=== PATIENT | female | born 1960 | race Caucasian/White ===

== ENCOUNTER 2018-03-23 04:56 | Observation (INO) | payer OTHER ==
[2018-03-23] MEDS ORDERED: NITROGLYCERIN SL TABS 0.4 MG TAB SUBLINGUAL PRN (04:59)
--- NOTE | 2018-03-23 05:01 | ED ---
Chest Pain HPI - General Stated Complaint: Chest Pain Time Seen by Provider: 03/23/18 04:59 Source: patient, RN/MD Mode of arrival: EMS Limitations: no limitations - History of Present Illness Initial Comments: Patient's 57-year-old woman transferred from [facility] to have cardiology consultation. The patient reports she had gone there after she had been having substernal chest pressure and some diaphoresis. The patient had recently been seen by the machine edge bander and had had a stress test prior to the onset of symptoms. Patient had workup there that was reportedly negative and her case been discussed with the machine edge bander on-call who requested that she be transferred here to have further studies. Patient states that her symptoms have improved. MD Complaint: chest pain -: hour(s) Onset: during rest Pain Location: substernal Pain Radiation: none Severity: mild Quality: heaviness Consistency: constant Improves With: nothing Worsens With: nothing Anginal Symptoms: diaphoresis Treatments Prior to Arrival: aspirin, oxygen - Related Data Home Medications Medication Instructions Recorded Confirmed Aspirin EC [Ecotrin] 325 mg PO DAILY 03/23/18 03/23/18 Insulin Glargine [Lantus] 85 unit SQ HS 03/23/18 03/23/18 Insulin Regular, Human [NovoLIN R] 5 - 20 unit SQ AC-TID PRN 03/23/18 03/23/18 Isosorbide Mononitrate ER [Imdur] 30 mg PO DAILY 03/23/18 03/23/18 Lisinopril [Zestril] 20 mg PO DAILY 03/23/18 03/23/18 Meloxicam [Mobic] 15 mg PO DAILY 03/23/18 03/23/18 Pilocarpine HCl 5 mg PO TID 03/23/18 03/23/18 Simvastatin [Zocor] 40 mg PO HS 03/23/18 03/23/18 cloNIDine HCL [Catapres] 0.2 mg PO BID 03/23/18 03/23/18 metFORMIN HCL [Glucophage] 500 mg PO BID 03/23/18 03/23/18 Allergies Allergy/AdvReac Type Severity Reaction Status Date / Time latex Allergy Unknown Verified 03/23/18 09:36 Penicillins Allergy Unknown Verified 03/23/18 09:36 Sulfa (Sulfonamide Allergy Unknown Verified 03/23/18 09:36 Antibiotics) Review of Systems ROS Statement: Those systems with pertinent positive or pertinent negative responses have been documented in the HPI. ROS Other: All systems not noted in ROS Statement are negative. Constitutional: Denies: fever, chills, weakness Respiratory: Denies: cough, dyspnea Cardiovascular: Reports: chest pain. Denies: palpitations, orthopnea, edema, syncope Gastrointestinal: Denies: abdominal pain, nausea, vomiting Genitourinary: Denies: dysuria, hematuria Musculoskeletal: Denies: back pain Skin: Denies: rash Neurological: Denies: headache, weakness, numbness EKG Findings - EKG Results: EKG: interpreted by GORGE KAY, sinus rhythm (Rate is proximal 69 bpm), normal axis, normal QRS, normal ST/T Past Medical History - Past Family History Father Family Medical History: AFIB, COPD, Coronary Artery Disease (CAD), Diabetes Mellitus Additional Family Medical History / Comment(s): Father at the age of 75 yrs. Mother Family Medical History: Cancer, COPD, Diabetes Mellitus, Myocardial Infarction ( [place]) Additional Family Medical History / Comment(s): Mother had ovarian cancer. She at the age of 59yrs from a massive [place] General Exam General appearance: alert, in no apparent distress Head exam: Present: atraumatic, normocephalic Eye exam: Present: normal appearance Respiratory exam: Present: normal lung sounds bilaterally. Absent: respiratory distress, wheezes, rales, rhonchi, stridor Cardiovascular Exam: Present: regular rate, normal rhythm, normal heart sounds. Absent: systolic murmur, diastolic murmur, rubs, gallop GI/Abdominal exam: Present: soft. Absent: distended, tenderness, guarding, rebound Extremities exam: Present: normal inspection, normal capillary refill. Absent: pedal edema, calf tenderness Back exam: Present: normal inspection. Absent: CVA tenderness (R), CVA tenderness (L) Neurological exam: Present: alert Skin exam: Present: warm, dry, intact, normal color. Absent: rash Course Vital Signs 03/23/18 03/23/18 05:04 05:55 Temperature 99.1 F 99.0 F Pulse Rate 86 72 Respiratory 18 18 Rate Blood Pressure 189/86 162/84 O2 Sat by Pulse 95 98 Oximetry Chest Pain MDM - MDM This patient's 57-year-old woman transferred here from [facility]. Transfer materials reviewed and admission orders written. Disposition Clinical Impression: Chest pain Disposition: ADMITTED IP TO THIS HOSP Condition: Fair
[2018-03-23 10:05] VITALS: RESP 16
--- NOTE | 2018-03-23 10:20 | P.HPIM ---
History of Present Illness H&P Date: 03/23/18 Chief Complaint: Chest pain, transferred here to obtain cardiology consultation Patient is obese 57-year-old female with a past medical history of type 2 diabetes, essential hypertension, dyslipidemia, angina, GERD that presents to the ER after being transferred here from [facility]. The patient is followed in cardiology clinic by Dr. Betancourt. She reports yesterday that she had a dobutamine stress test and echocardiogram performed in clinic, apparently post procedure the patient began having intractable nausea and severe chest pressure and later presented to [facility] and was subsequently transferred here. The patient reports associated shortness of breath, diaphoresis, feeling lightheaded and was close to passing out. She reports sensation of feeling like her heart was racing she also reports her blood pressure was severely elevated at 180s systolically. The patient reports that she's been following with Dr. Betancourt for several years and reports that she had a cath done in 2009 that was reportedly normal. Review of EKG done that her district indicates no acute signs of ischemia and troponins are apparently negative at that time. The patient currently denies any chest pressure Review of Systems Pertinent positives and negatives as discussed in HPI, complete review of systems was performed and all other systems are negative Past Medical History Past Medical History: Cancer, Chest Pain / Angina, Diabetes Mellitus, Eye Disorder, Fibromyalgia, GERD/Reflux, Hyperlipidemia, Hypertension, Pneumonia, Sleep Apnea/CPAP/BIPAP Additional Past Medical History / Comment(s): 2004 R kidney cancer with nephrectomy, 2009 L kidney cancer with partial nephrectomy, 2007 bilateral breast cancer with bilateral mastectomies, IDDM type II, neuropathy bilateral hands, hiatal hernia, past stomach ulcers, AWAIS without device, chronic back pain /radiates into R leg at times, arthritis back, hips knees, foot cramping with walking long distances, Sjogren's syndrome, UTIs, urinary leakage-wears depends, abnormal gait-"stumble", 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 History of Any Multi-Drug Resistant Organisms: None Reported Past Surgical History: Breast Surgery, Section, Heart Catheterization, Tonsillectomy, Tubal Ligation Additional Past Surgical History / Comment(s): 2004 R nephrectomy, 2009 partial L nephrectomy, 2009 bilateral mastectomies/breast implants, 2 past cardiac caths with last time being 2010 and was clear, colonoscopy, L corneal implant Additional Past Anesthesia/Blood Transfusion Reaction / Comment(s): Very slow to awaken. Smoking Status: Current every day smoker - Past Family History Father Family Medical History: AFIB, COPD, Coronary Artery Disease (CAD), Diabetes Mellitus Additional Family Medical History / Comment(s): Father at the age of 75 yrs. Mother Family Medical History: Cancer, COPD, Diabetes Mellitus, Myocardial Infarction ( [place]) Additional Family Medical History / Comment(s): Mother had ovarian cancer. She at the age of 59yrs from a massive [place] Medications and Allergies Home Medications Medication Instructions Recorded Confirmed Type Aspirin EC [Ecotrin] 325 mg PO DAILY 03/23/18 03/23/18 History Insulin Glargine [Lantus] 85 unit SQ HS 03/23/18 03/23/18 History Insulin Regular, Human [NovoLIN R] 5 - 20 unit SQ AC-TID PRN 03/23/18 03/23/18 History Isosorbide Mononitrate ER [Imdur] 30 mg PO DAILY 03/23/18 03/23/18 History Lisinopril [Zestril] 20 mg PO DAILY 03/23/18 03/23/18 History Meloxicam [Mobic] 15 mg PO DAILY 03/23/18 03/23/18 History Pilocarpine HCl 5 mg PO TID 03/23/18 03/23/18 History Simvastatin [Zocor] 40 mg PO HS 03/23/18 03/23/18 History cloNIDine HCL [Catapres] 0.2 mg PO BID 03/23/18 03/23/18 History metFORMIN HCL [Glucophage] 500 mg PO BID 03/23/18 03/23/18 History Allergies Allergy/AdvReac Type Severity Reaction Status Date / Time latex Allergy Unknown Verified 03/23/18 09:36 Penicillins Allergy Unknown Verified 03/23/18 09:36 Sulfa (Sulfonamide Allergy Unknown Verified 03/23/18 09:36 Antibiotics) Physical Exam Vitals: Vital Signs Temp Pulse Resp BP BP Pulse Ox 03/23/18 08:00 97.9 F 18 173/97 95 03/23/18 05:55 99.0 F 72 18 162/84 98 03/23/18 05:04 99.1 F 86 18 189/86 95 Intake and Output 03/22/18 03/23/18 03/23/18 22:59 06:59 14:59 Other: Voiding Method Toilet Weight 92.533 kg Constitutional: No acute distress, conversant, pleasant Eyes: Anicteric sclerae, moist conjunctiva, no lid-lag, PERRLA ENMT: NC/AT,Oropharynx clear, no erythema, exudates Neck:Supple, FROM, no masses, or JVD, No carotid bruits; No thyromegaly Lungs: Clear to auscultation, Clear to percussion, Normal respiratory effort, no accessory muscle use Cardiovascular: Heart regular in rate and rhythm, No murmurs, occasional S3 heard, or rubs no peripheral edema Abdominal: Soft Nontender, nom distended, no guarding, no rebound or rigidity, Normoactive bowel sounds No hepatomegaly, No splenomegaly, No palpable mass No abdominal wall hernia noted Skin: Normal temperature, tone, texture, turgor, No induration No subcutaneous nodules, No rash, lesions, No ulcers Extremities:No digital cyanosis No clubbing, Pedal pulses intact and symmetrical Radial pulses intact and symmetrical Normal gait and station, No calf tenderness Psychiatric: Alert and oriented to person, place and time, Appropriate affect Intact judgement Neuro: Muscles Strength 5/5 in all 4 extremities, Sensation to light touch grossly present throughout, Cranial nerves II-XII grossly intact. No focal sensory deficits Thrombosis Risk Factor Assmnt - Choose All That Apply Any of the Below Risk Factors Present?: Yes Each Factor Represents 1 point: Age 41-60 years, Obesity (BMI >25) Other Risk Factors: Yes Each Risk Factor Represents 2 Points: Malignancy Other congenital or acquired thrombophilia - If yes, enter type in comment: No Thrombosis Risk Factor Assessment Total Risk Factor Score: 4 Thrombosis Risk Factor Assessment Level: Moderate Risk Assessment and Plan (1) Chest pain Status: Acute Code(s): R07.9 - CHEST PAIN, UNSPECIFIED SNOMED Code(s): 35782218 (2) Type 2 diabetes mellitus Status: Acute Code(s): E11.9 - TYPE 2 DIABETES MELLITUS WITHOUT COMPLICATIONS SNOMED Code(s): 25376652 (3) Hyperlipidemia Status: Acute Code(s): E78.5 - HYPERLIPIDEMIA, UNSPECIFIED SNOMED Code(s): 62551342 (4) GERD (gastroesophageal reflux disease) Status: Acute Code(s): K21.9 - GASTRO-ESOPHAGEAL REFLUX DISEASE WITHOUT ESOPHAGITIS SNOMED Code(s): 469398502 Plan: The patient's recent observation for chest pain we'll need to rule out ACS, initial workup this negative for any signs of acute ischemia we'll continue to trend troponins. Patient recently had echocardiogram and stress test performed in clinic, we'll obtain a region results continue chest pain orders with aspirin. Statin therapy, nitroglycerin. Cardiology is consulted. We'll continue monitor her vitals and continue follow her clinical course Update:patient cleared for discharge per cardiology as dobutamine stress test was negative as well as her subsequent cardiac enzymes. And stress echocardiogram results are pending. It was thought that the patient's presenting symptoms were secondary to infusion of the dobutamine, she subsequently discharged home in stable condition with follow-up with Dr. Betancourt.
[2018-03-23] MEDS ORDERED: LISINOPRIL 20 MG TAB PO SCH (10:30)
[2018-03-23] MEDS ORDERED: ISOSORBIDE MONONITRATE ER 30 MG TAB.ER.24H PO SCH (10:30)
[2018-03-23] MEDS ORDERED: ASPIRIN 325 MG TAB PO SCH (10:30)
[2018-03-23] MEDS: metFORMIN 500 MG TAB PO SCH ×2 (10:56→18:19)
--- NOTE | 2018-03-23 11:21 | P.CRDCN ---
History of Present Illness History of present illness: Mrs. Harrison is a pleasant 57-year-old female past medical history significant for hypertension, dyslipidemia, diabetes mellitus, sleep apnea, GERD , fibromyalgia and chronic nicotine dependence. She denies history of coronary artery disease. She follows with Dr. Betancourt in the office. We have been asked to see her in consultation for chest pain. She underwent a dobutamined stress echocardiogram yesterday in the office. During the test she states she became very dizzy and nauseated with palpitations and chest pressure. She states she believes she passed out in the office during the exam. After the test she continued to feel dizzy and nauseated. She went home with her sister afterwards and was resting at her house. She states she started becoming acutely diaphoretic and was dripping in sweat. She sat down in front of the fan and AC unit but was unable to cool off. This persisted off an on throughout the day. Around 8pm she was attempting to go home for the night and she again started feeling dizzy, nauseated and diaphoretic. For this reason she went to emergency center at [facility]. She was sent here for further evaluation. At the time of my exam she is seen and examined laying flat in bed in no acute distress. She denies chest pain, shortness of breath, dizziness, nausea, vomiting or diaphoresis. She denies pain in the arms, back, neck or jaw. Stress test performed yesterday was reviewed by Dr. Betancourt and was normal with no evidence of stress induced cardiac ischemia. Echocardiogram was obtained 03/09 reveals preserved left ventricular systolic function with ejection fraction 55% and mild mitral regurgitation. EKG reveals sinus mechanism with no acute ST or T-wave abnormalities. Chest xray obtain at [facility] negative for an acute cardiopulmonary process. Laboratory data reviewed from her discharge. Potassium 4.0, magnesium 1.6, creatinine 0.8 to cardiac enzymes negative 1. Current cardiac medications include lisinopril 20 mg daily, clonidine 0.2 mg twice a day, aspirin 325 mg daily, Imdur 30 mg daily and simvastatin 40 mg daily. She also takes insulin, mobic, pilocarpine and Glucophage. Most recent cardiac catheterization performed 2009 revealed no evidence of obstructive coronary artery disease. Review of Systems At the time of my exam: CONSTITUTIONAL: Denies fever. Denies chills. EYES: Denies blurred vision. Denies vision changes. Denies eye pain. EARS, NOSE, MOUTH & THROAT: Denies headache. Denies sore throat. Denies ear pain. CARDIOVASCULAR: Denies chest pain. Denies shortness of breath. Denies orthopnea. Denies PND. Denies palpitations. RESPIRATORY: Denies cough. GASTROINTESTINAL: Denies abdominal pain. Denies diarrhea. Denies constipation. Denies nausea. Denies vomiting. MUSCULOSKELETAL: Denies myalgias. INTEGUMENTARY: Denies pruitis. Denies rash. NEUROLOGIC: Denies numbness. Denies tingling. Denies weakness. PSYCHIATRIC: Denies anxiety. Denies depression. ENDOCRINE: Denies fatigue. Denies weight change. Denies polydipsia. Denies polyurina. GENITOURINARY: Denies burning, hematuria or urgency with micturation. HEMATOLOGIC: Denies history of anemia. Denies bleeding. Past Medical History Past Medical History: Cancer, Chest Pain / Angina, Diabetes Mellitus, Eye Disorder, Fibromyalgia, GERD/Reflux, Hyperlipidemia, Hypertension, Pneumonia, Sleep Apnea/CPAP/BIPAP Additional Past Medical History / Comment(s): 2004 R kidney cancer with nephrectomy, 2009 L kidney cancer with partial nephrectomy, 2007 bilateral breast cancer with bilateral mastectomies, IDDM type II, neuropathy bilateral hands, hiatal hernia, past stomach ulcers, AWAIS without device, chronic back pain /radiates into R leg at times, arthritis back, hips knees, foot cramping with walking long distances, Sjogren's syndrome, UTIs, urinary leakage-wears depends, abnormal gait-"stumble", 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 History of Any Multi-Drug Resistant Organisms: None Reported Past Surgical History: Breast Surgery, Section, Heart Catheterization, Tonsillectomy, Tubal Ligation Additional Past Surgical History / Comment(s): 2004 R nephrectomy, 2009 partial L nephrectomy, 2010 bilateral mastectomies/breast implants, 2 past cardiac caths with last time being 2009 and was clear, colonoscopy, L corneal implant Additional Past Anesthesia/Blood Transfusion Reaction / Comment(s): Very slow to awaken. Smoking Status: Current every day smoker - Past Family History Father Family Medical History: AFIB, COPD, Coronary Artery Disease (CAD), Diabetes Mellitus Additional Family Medical History / Comment(s): Father at the age of 75 yrs. Mother Family Medical History: Cancer, COPD, Diabetes Mellitus, Myocardial Infarction ( [place]) Additional Family Medical History / Comment(s): Mother had ovarian cancer. She at the age of 59yrs from a massive [place] Medications and Allergies Home Medications Medication Instructions Recorded Confirmed Type Aspirin EC [Ecotrin] 325 mg PO DAILY 03/23/18 03/23/18 History Insulin Glargine [Lantus] 85 unit SQ HS 03/23/18 03/23/18 History Insulin Regular, Human [NovoLIN R] 5 - 20 unit SQ AC-TID PRN 03/23/18 03/23/18 History Isosorbide Mononitrate ER [Imdur] 30 mg PO DAILY 03/23/18 03/23/18 History Lisinopril [Zestril] 20 mg PO DAILY 03/23/18 03/23/18 History Meloxicam [Mobic] 15 mg PO DAILY 03/23/18 03/23/18 History Pilocarpine HCl 5 mg PO TID 03/23/18 03/23/18 History Simvastatin [Zocor] 40 mg PO HS 03/23/18 03/23/18 History cloNIDine HCL [Catapres] 0.2 mg PO BID 03/23/18 03/23/18 History metFORMIN HCL [Glucophage] 500 mg PO BID 03/23/18 03/23/18 History Allergies Allergy/AdvReac Type Severity Reaction Status Date / Time latex Allergy Unknown Verified 03/23/18 09:36 Penicillins Allergy Unknown Verified 03/23/18 09:36 Sulfa (Sulfonamide Allergy Unknown Verified 03/23/18 09:36 Antibiotics) Physical Exam Vitals: Vital Signs Temp Pulse Pulse Resp BP BP Pulse Ox 03/23/18 10:04 85 16 158/84 93 L 03/23/18 08:00 97.9 F 18 173/97 95 03/23/18 05:55 99.0 F 72 18 162/84 98 03/23/18 05:04 99.1 F 86 18 189/86 95 Intake and Output 03/22/18 03/23/18 03/23/18 22:59 06:59 14:59 Other: Voiding Method Toilet Weight 92.533 kg Blood pressure 158/84 heart rate 85 afebrile maintaining oxygen saturation on room air GENERAL: This is a 57-year-old female in no apparent distress at the time of my examination. Obese. HEENT: Head is atraumatic, normocephalic. Pupils are equal, round. Sclerae anicteric. Conjunctivae are clear. Mucous membranes of the mouth are moist. Neck is supple. There is no jugular venous distention. No carotid bruit is heard. LUNGS: Clear to auscultation no wheezes, rales or rhonchi. No chest wall tenderness is noted on palpation or with deep breathing. HEART: Regular rate and rhythm without murmurs, rubs or gallops. S1 and S2 heard. ABDOMEN: Soft, nontender. Bowel sounds are heard. No organomegaly noted. EXTREMITIES: No evidence of peripheral edema and no calf tenderness noted. VASCULAR: Radial and dorsalis pedis pulses palpated, no evidence of clubbing. NEUROLOGIC: Patient is awake, alert and oriented x3. Results Current Medications Generic Name Dose Route Start Last Admin Trade Name Freq PRN Reason Stop Dose Admin Aspirin 325 mg 03/23/18 10:30 03/23/18 10:56 Aspirin PO 325 mg DAILY BREANNA Administration Atorvastatin Calcium 20 mg 03/23/18 21:00 Lipitor PO HS BREANNA Clonidine 0.2 mg 03/23/18 21:00 Catapres PO BID BREANNA Insulin Detemir 85 unit 03/23/18 21:00 Levemir SQ HS BREANNA Isosorbide Mononitrate 30 mg 03/23/18 10:30 03/23/18 10:56 Imdur PO 30 mg DAILY BREANNA Administration Lisinopril 20 mg 03/23/18 10:30 03/23/18 10:56 Zestril PO 20 mg DAILY BREANNA Administration Metformin HCl 500 mg 03/23/18 17:30 03/23/18 10:56 Glucophage PO 500 mg BID-W/MEALS BREANNA Administration Nitroglycerin 0.4 mg 03/23/18 04:59 Nitrostat SUBLINGUAL Q5M PRN Chest Pain Pilocarpine HCl 5 mg 03/23/18 16:00 Salagen PO TID BREANNA Intake and Output 03/22/18 03/23/18 03/23/18 22:59 06:59 14:59 Other: Voiding Method Toilet Weight 92.533 kg Assessment and Plan Assessment: ASSESSMENT Chest pain, atypical. Normal dobutamine stress echocardiogram tomorrow. Symptoms most likely related to infusion of dobutamine. Hypertension Dyslipidemia Diabetes mellitus Chronic nicotine dependence. PLAN Continue to obtain serial cardiac enzymes for a total of 3, one at [facility] was negative, to rule out an acute event. Once an acute event has been ruled out she is stable from a cardiac perspective. Resume simvastatin 40 mg, Imdur 30 mg, aspirin 325 mg, clonidine 0.2 mg twice a day and lisinopril 20 mg daily. She already has an appointment with Dr. Betancourt set up and she should keep this appointment. Thank you kindly for this consultation. Nurse Practitioner note has been reviewed, I agree with a documented findings and plan of care. Patient was seen and examined.
[2018-03-23] MEDS ORDERED: ACETAMINOPHEN TAB 325 MG TAB PO PRN (11:47)
[2018-03-23 11:56] LABS: Creatine Kinase 64 U/L (30-135)
[2018-03-23 12:08] LABS: Troponin I <0.012 ng/mL (0.000-0.034)
[2018-03-23 15:24] VITALS: BMI 33.9
[2018-03-23 15:56] VITALS: BP 144/78; PULSE 65; TEMP 98.4
[2018-03-23] MEDS ORDERED: PILOCARPINE 5 MG TAB PO SCH (16:00)
[2018-03-23 17:32] LABS: Creatine Kinase 59 U/L (30-135)
[2018-03-23 17:44] LABS: Creatine Kinase MB 0.9 ng/mL (0.0-2.4); Troponin I <0.012 ng/mL (0.000-0.034)
--- NOTE | 2018-03-23 19:27 | P.PN ---
Progress Note - Text Progress Note Date: 03/23/18 patient is OK to be discharged per Dr. Shin
[2018-03-23] MEDS ORDERED: cloNIDine HCL 0.2 MG TAB PO SCH (21:00)
[2018-03-23] MEDS ORDERED: ATORVASTATIN 20 MG TAB PO SCH (21:00)
[2018-03-23] MEDS ORDERED: INSULIN DETEMIR 100 UNIT/ML 10 ML VIAL SQ SCH (21:00)
[2018-03-23 21:49] LABS: Hemoglobin A1C 8.1 % (4.0-6.0)
[2018-03-24] MEDS ORDERED: ASPIRIN 325 MG TAB PO SCH (09:00)
== END 2018-03-23 19:47 | disposition home or self-care (01) ==
LOC: EC 04:56 → 3OBS 04:59
PROVIDERS: ADMIT Internal Medicine; ATTEND Internal Medicine
DX: R07.89 Other chest pain (principal); R61 Generalized hyperhidrosis; R06.02 Shortness of breath; R00.2 Palpitations; R11.0 Nausea; R42 Dizziness and giddiness; E78.5 Hyperlipidemia, unspecified; I10 Essential (primary) hypertension; K21.9 Gastro-esophageal reflux disease without esophagitis; M79.7 Fibromyalgia; E11.40 Type 2 diabetes mellitus with diabetic neuropathy, unspecified; G47.33 Obstructive sleep apnea (adult) (pediatric); E66.9 Obesity, unspecified; G89.29 Other chronic pain; M54.9 Dorsalgia, unspecified; M47.9 Spondylosis, unspecified; M16.0 Bilateral primary osteoarthritis of hip; M17.0 Bilateral primary osteoarthritis of knee; M35.00 Sjogren syndrome, unspecified; F17.200 Nicotine dependence, unspecified, uncomplicated; Z68.33 Body mass index [BMI] 33.0-33.9, adult; R32 Unspecified urinary incontinence; R26.9 Unspecified abnormalities of gait and mobility; Z88.0 Allergy status to penicillin; Z88.2 Allergy status to sulfonamides; Z91.040 Latex allergy status; Z79.4 Long term (current) use of insulin; Z79.82 Long term (current) use of aspirin; Z79.1 Long term (current) use of non-steroidal anti-inflammatories (NSAID); Z79.84 Long term (current) use of oral hypoglycemic drugs; Z79.899 Other long term (current) drug therapy; Z82.5 Family history of asthma and other chronic lower respiratory diseases; Z82.49 Family history of ischemic heart disease and other diseases of the circulatory system; Z80.41 Family history of malignant neoplasm of ovary; Z87.01 Personal history of pneumonia (recurrent); Z85.3 Personal history of malignant neoplasm of breast; Z85.528 Personal history of other malignant neoplasm of kidney; Z87.11 Personal history of peptic ulcer disease; Z87.440 Personal history of urinary (tract) infections; Z98.82 Breast implant status; Z90.5 Acquired absence of kidney; Z90.13 Acquired absence of bilateral breasts and nipples
CPT/HCPCS: 99285; 93005; 82550; 82553; 84484; 83036; G0378